=== PATIENT | male | born 1975 | race Caucasian/White ===

== ENCOUNTER → 2018-11-11 | Outpatient (CLI) | payer BC | END | disposition home or self-care (01) | LOC: LABWHC1 07:58 | PROVIDERS: ATTEND Internal Medicine | DX: I10 Essential (primary) hypertension (principal); E78.1 Pure hyperglyceridemia | CPT/HCPCS: 36415; 80061 ==

== ENCOUNTER 2019-04-05 12:06 | Day surgery (SDC) | payer BC ==
[2019-04-03 10:01] VITALS: BMI 50.1
[~2019-04-05 12:06] MED LIST: LACTATED RINGERS 1,000 ML IV SCH
[2019-04-05] MEDS ORDERED: LIDOCAINE 1% 20 ML VIAL (10MG/ML) FOR IV START INTRADERMA ONE (13:00)
[2019-04-05 13:01] VITALS: RESP 18; TEMP 97.9
[2019-04-05] MEDS ORDERED: PROPOFOL 10 MG/ML 20 ML VIAL IV ONE (13:17)
[2019-04-05] MEDS ORDERED: LIDOCAINE 1% INJ 10MG/ML (20 ML MDV) ONE (13:17)
--- NOTE | 2019-04-05 13:20 | P.GSHP ---
History of Present Illness H&P Date: 04/05/19 Chief Complaint: GI bleed This a 44-year-old male who presents today for colonoscopy. He's had issues with GI bleed. Past Medical History Past Medical History: Hypertension, Skin Disorder, Sleep Apnea/CPAP/BIPAP Additional Past Medical History / Comment(s): loose stools often, psoriasis, History of Any Multi-Drug Resistant Organisms: None Reported Past Surgical History: Bariatric Surgery Additional Past Surgical History / Comment(s): gastric sleeve, lasik eye surgery Past Anesthesia/Blood Transfusion Reactions: No Reported Reaction Smoking Status: Never smoker - Past Family History Mother Family Medical History: Cancer Additional Family Medical History / Comment(s): pancreatic cancer Medications and Allergies Home Medications Medication Instructions Recorded Confirmed Type Docusate [Colace] 100 mg PO TID 04/03/19 04/03/19 History Ibuprofen [Motrin] 600 mg PO Q8HR PRN 04/03/19 04/03/19 History Losartan/Hydrochlorothiazide 1 each PO DAILY 04/03/19 04/03/19 History [Losartan-Hctz 100-25 mg Tab] amLODIPine BESYLATE [Norvasc] 10 mg PO DAILY 04/03/19 04/03/19 History Allergies Allergy/AdvReac Type Severity Reaction Status Date / Time Penicillins Allergy Rash/Hives Verified 04/05/19 12:48 Surgical - Exam Vital Signs Temp Pulse Resp BP Pulse Ox 97.9 F 60 18 119/72 95 04/05/19 12:58 04/05/19 12:58 04/05/19 12:58 04/05/19 12:58 04/05/19 12:58 - General well developed, well nourished, no distress - Eyes PERRL - ENT normal pinna - Neck no masses - Respiratory normal expansion - Cardiovascular Rhythm: regular - Abdomen Abdomen: soft, non tender Assessment and Plan Assessment: GI bleed. We'll perform colonoscopy.
--- NOTE | 2019-04-05 13:30 | P.OP ---
Date of Procedure: 04/05/19 Preoperative Diagnosis: GI bleed Postoperative Diagnosis: External hemorrhoids Procedure(s) Performed: Colonoscopy Anesthesia: MAC Surgeon: Humberto Cordon Pathology: none sent Condition: stable Disposition: PACU Description of Procedure: PROCEDURE: The patient was placed on the endoscopy table in the lateral position. Digital rectal examination was performed which revealed a thrombosed hemorrhoid which had evidence of perforation. As no active bleeding.. The clot had passed from the hemorrhoid.. The prostate was symmetrical without nodules. Flexible colonoscope was then placed in the patient's anus and passed throughout the entire colon. The ileocecal valve was visualized. The cecum, ascending, transverse, descending and sigmoid colon were normal. The rectum was normal as well. There were no masses, polyps or diverticula noted in the entire colon. SUMMARY OF FINDINGS: Most external hemorrhoid
[2019-04-05 13:50] VITALS: BP 121/79; PULSE 56
== END 2019-04-05 14:21 | disposition home or self-care (01) ==
LOC: ORWHC2ENDO 12:06
PROVIDERS: ATTEND Surgery
DX: K64.4 Residual hemorrhoidal skin tags (principal); I10 Essential (primary) hypertension; G47.33 Obstructive sleep apnea (adult) (pediatric); Z88.0 Allergy status to penicillin; Z99.89 Dependence on other enabling machines and devices; Z98.84 Bariatric surgery status; Z79.899 Other long term (current) drug therapy
CPT/HCPCS: 45378; J2001; J2704

== ENCOUNTER → 2020-12-27 | Outpatient (CLI) | payer BC ==
--- NOTE | 2020-12-27 18:33 | ECHOF ---
Referral Reason:I10 essential HTN MEASUREMENTS -------- HEIGHT: 182.9 cm WEIGHT: 158.8 kg BP: RVIDd: 5.5 cm (< 3.3) IVSd: 1.6 cm (0.6 - 1.1) LVIDd: 4.7 cm (3.9 - 5.3) LVPWd: 1.9 cm (0.6 - 1.1) IVSs: 2.3 cm LVIDs: 3.0 cm LVPWs: 2.2 cm LAESV Index (A-L): 36.37 ml/m Ao Diam: 3.6 cm (2.0 - 3.7) AV Cusp: 2.6 cm (1.5 - 2.6) LA Diam: 4.4 cm (2.7 - 3.8) MV EXCURSION: 27.027 mm (> 18.000) MV EF SLOPE: 99 mm/s (70 - 150) EPSS: 0.4 cm MV E Aleksander: 0.91 m/s MV DecT: 217 ms MV A Aleksander: 0.47 m/s MV E/A Ratio: 1.93 RAP: 5.00 mmHg RVSP: 39.10 mmHg FINDINGS -------- Sinus rhythm. This was a technically adequate study. The left ventricular size is normal. There is moderate concentric left ventricular hypertrophy. O verall left ventricular systolic function is normal with, an EF between 55 - 60 %. The diastolic fi lling pattern is normal for the age of the patient 9.66. The right ventricle is moderate to severely enlarged. LA is moderately dilated 34-39 ml/m2 The right atrium is mildly enlarged. Mobile interatrial septum. There is no evidence of aortic regurgitation. There is no evidence of aortic stenosis. Tsxg-sh-fgnthkng mitral regurgitation is present. Uqkx-rk-makmdpeb tricuspid regurgitation present. There is mild pulmonary hypertension. The right ventricular systolic pressure, as measured by Doppler, is 39.10mmHg. Trace/mild (physiologic) pulmonic regurgitation. The aortic root size is normal. IVC Not well visulized. There is no pericardial effusion. CONCLUSIONS -------- 1. The left ventricular size is normal. 2. There is moderate concentric left ventricular hypertrophy. 3. Overall left ventricular systolic function is normal with, an EF between 55 - 60 %. 4. The diastolic filling pattern is normal for the age of the patient 9.66 5. The right ventricle is moderate to severely enlarged. 6. LA is moderately dilated 34-39 ml/m2 7. The right atrium is mildly enlarged. 8. Mobile interatrial septum. 9. Izbi-fx-asmuvtay mitral regurgitation is present. 10. Jwmh-sm-cfuxeeyz tricuspid regurgitation present. 11. There is mild pulmonary hypertension. 12. The right ventricular systolic pressure, as measured by Doppler, is 39.10mmHg. 13. Trace/mild (physiologic) pulmonic regurgitation. WELDING MACHINE SETTER: Marychuy Torres RDCS
== END | disposition home or self-care (01) ==
LOC: RADECHMAIN 08:23
PROVIDERS: ATTEND Family Medicine
DX: I08.8 Other rheumatic multiple valve diseases (principal); I27.20 Pulmonary hypertension, unspecified
CPT/HCPCS: 93306

== ENCOUNTER 2021-01-24 10:10 | Day surgery (SDC) | payer BC ==
[2021-01-17 17:50] VITALS: BMI 50.1
[2021-01-24] MEDS ORDERED: SODIUM CHLORIDE 0.9% 500 ML 500 ML IV ONE (11:00)
[2021-01-24] MEDS ORDERED: fentaNYL (PF) 50 MCG/ML 2 ML AMP ONE ×3 (11:27)
[2021-01-24] MEDS: BENZOCAINE SPRAY 1 CAN TOPICAL ONE ×2 (11:37→11:41)
[2021-01-24] MEDS ORDERED: fentaNYL (PF) 50 MCG/ML 2 ML AMP IVP ONE (11:42)
[2021-01-24] MEDS ORDERED: MIDAZOLAM 2 MG/2 ML VIAL IVP ONE ×2 (11:42→11:45)
--- NOTE | 2021-01-24 12:28 | ECHOT ---
TRANSESOPHAGEAL ECHOCARDIOGRAM DATE OF SERVICE: January 24, 2021. PERFORMING PHYSICIAN: Teddy Roque MD. PROCEDURE PERFORMED: Transesophageal echocardiogram. INDICATION: This is a 46-year-old gentleman who was seen recently in the office for shortness of breath and he underwent transthoracic echocardiogram which revealed right-sided enlargement with mobile interatrial septum and because I was concerned about fenestrated atrial septal defect, I asked the patient to have a transesophageal echocardiogram. COMPLICATION: None. LEVEL OF SEDATION: Moderate with a sedation length of 12 minutes. PROCEDURE DESCRIPTION: After obtaining an informed consent, the patient was brought to the transesophageal echocardiogram room. A pulse oximetry and heart rate monitors were attached the patient. Subsequently, the patient was turned into left lateral position. The probe was advanced through the bite guard to the mid esophageal where 2D echocardiogram images as well as color Doppler images and pulse and continuous-wave Doppler images were obtained from various angles. The procedure was completed without any complication. FINDINGS: The left ventricular dimension and systolic function appeared to be within normal limits. The ejection fraction appeared to be in the range of 50% to 55%. The right ventricle appeared to be mildly dilated. The left atrium and right atrium are dilated as well. The interatrial septum appeared to be extremely aneurysmal with evidence of bidirectional shunt was identified on color-flow Doppler as well as contrast study. The aortic valve is trileaflet valve without stenosis with mild regurgitation. The mitral valve was mildly thickened with moderate MR. There was mild tricuspid regurgitation seen. No evidence of pericardial effusion identified. CONCLUSION: 1. Fenestrated interatrial septum with bidirectional shunt. 2. The interatrial septum also is extremely aneurysmal. There was evidence of valve seen as well. 3. Normal left ventricular dimension and systolic function. 4. Mildly dilated right ventricle with normal function. 5. Moderate biatrial enlargement. 6. Trileaflet aortic valve without stenosis with mild insufficiency. 7. Mildly thickened mitral valve leaflets with moderate mitral regurgitation. 8. No evidence of pericardial effusion. POSTPROCEDURE MANAGEMENT: The patient needs to undergo transcutaneous closure of the fenestrated interatrial septum. MMODL / IJN: [id number] /
[2021-01-24 16:17] VITALS: RESP 18
[2021-01-24 16:19] VITALS: BP 133/73; PULSE 56
== END 2021-01-24 13:05 | disposition home or self-care (01) ==
LOC: CATHCVL 10:10
PROVIDERS: ATTEND Internal Medicine Interventional Cardiology
DX: Q21.1 Atrial septal defect (principal); I34.0 Nonrheumatic mitral (valve) insufficiency; E66.9 Obesity, unspecified; Z68.43 Body mass index [BMI] 50.0-59.9, adult; G47.30 Sleep apnea, unspecified; I10 Essential (primary) hypertension; Z79.899 Other long term (current) drug therapy; Z88.0 Allergy status to penicillin
CPT/HCPCS: 93312; 93320; 93325; J2250; J3010

== ENCOUNTER → 2021-02-12 | Outpatient (CLI) | payer BC ==
[2021-02-12 07:34] LABS: HCT 45.3 % (39.0-53.0); HGB 15.7 gm/dL (13.0-17.5); MCH 32.7 pg (25.0-35.0); MCHC 34.6 g/dL (31.0-37.0); MCV 94.6 fL (80.0-100.0); Mean Platelet Volume 8.2; Platelet Count 200 k/uL (150-450); RBC 4.79 m/uL (4.30-5.90); RDW 12.1 % (11.5-15.5); WBC 6.1 k/uL (3.8-10.6)
[2021-02-12 07:52] LABS: African American GFR (CKD) >90 (>60 ml/min/1.73 sqM); Anion Gap 7 mmol/L; Blood Urea Nitrogen 12 mg/dL (9-20); Carbon Dioxide 32 mmol/L (22-30); Chloride 101 mmol/L (98-107); Non-African American GFR(CKD) >90 (>60 ml/min/1.73 sqM); Sodium 140 mmol/L (137-145)
== END | disposition home or self-care (01) ==
LOC: LABPAT 07:00
PROVIDERS: ATTEND Internal Medicine Interventional Cardiology
DX: Z01.812 Encounter for preprocedural laboratory examination (principal); Q21.1 Atrial septal defect
CPT/HCPCS: 36415; 80051; 82565; 84520; 85027

== ENCOUNTER 2021-02-21 09:43 | Day surgery (SDC) | payer BC ==
[2021-02-19 08:41] VITALS: BMI 50.1
[~2021-02-21 09:43] MED LIST changes: +CLINDAMYCIN 300 MG in DEXTROSE 5% IN WATER 50 ML IVPB ONE; -LACTATED RINGERS 1,000 ML IV SCH; +SODIUM CHLORIDE 0.9% 1,000 ML in EMPTY BAG 1 BAG IV ONE
[2021-02-21] MEDS ORDERED: SODIUM CHLORIDE 0.9% 1,000 ML IV ONE (09:51)
[2021-02-21] MEDS ORDERED: ASPIRIN 325 MG TAB PO ONE (11:02)
[2021-02-21] MEDS ORDERED: MIDAZOLAM 2 MG/2 ML VIAL IV ONE (11:03)
[2021-02-21] MEDS: fentaNYL (PF) 50 MCG/ML 2 ML AMP IVP ONE ×2 (11:24→11:56)
[2021-02-21] MEDS ORDERED: MIDAZOLAM 2 MG/2 ML VIAL IVP ONE (11:28)
[2021-02-21] MEDS ORDERED: HEPARIN SODIUM 1,000 UN/ML (10ML VL) IVP ONE (11:39)
[2021-02-21] MEDS ORDERED: IOPAMIDOL-370 50ML BTL INJ ONE (12:13)
[2021-02-21] MEDS ORDERED: CLOPIDOGREL 75 MG TAB PO ONE (12:13)
[2021-02-21] MEDS ORDERED: SODIUM CHLORIDE 0.9% 1,000 ML IV SCH (12:15)
--- NOTE | 2021-02-21 12:21 | P.PCN ---
Date of Procedure: 02/21/21 Operative Findings: PERCUTANEOUS CLOSURE OF PATENT FORAMEN OVALE (PFO) AND ATRIAL SEPTAL DEFECT (ASD) PERFORMING PHYSICIAN: Teddy Roque MD, [facility] PROCEDURE PERFORMED: 1. Successful percutaneous closure of fenestrated atrial septal defect (ASD) using 35 mm Amplatzer PFO Occluder with an excellent results and without any residual shunt. 2. Intracardiac echocardiogram imaging. 3. Right atrial angiogram. INDICATION: This is a very pleasant 46-year-old gentleman who was seen recently in the office for right heart enlargement. He underwent transesophageal echocardiogram and that revealed fenestrated intra-atrial septum which was confirmed by intracardiac echocardiogram today. He was provided today to undergo percutaneous closure of the fenestrated interatrial septum. APPROACH: Right common femoral vein COMPLICATION: None. LEVEL OF SEDATION: Moderate with sedation length of 63 minutes. PROCEDURE DESCRIPTION: After obtaining informed consent, the patient was brought to the cardiac laboratory animal care veterinarian. The right common femoral vein was cannulated x2 using micropuncture technique under ultrasound guidance, the micropuncture wire passed easily, then I placed two 8-Andorran sheath in the right groin. Subsequently I cannulated the Right common femoral vein with the same technique and I placed an 8-Andorran sheath there as well. At that point, anticoagulation was initiated using heparin and the patient was given a bolus of 10,000 units of heparin IV with continuous ACT monitoring throughout the procedure. After that, the intracardiac echocardiogram probe was advanced through one of the venous sheath all the way to the right atrium where we did interrogate the interatrial septum and identified the patent foramen ovale which was measured about 35 mm. Also atrial septal defect was identified. Subsequently, I did cross the patent foramen ovale using 0.035 J-wire with the backup support of multipurpose catheter. The wire was advanced all the way to the left upper pulmonary vein and subsequently the catheter was advanced over the wire to the left upper pulmonary vein. The 0.035 J-wire was pulled out and then I advanced a samina wire. Subsequently, the multipurpose catheter was withdrawn out and the wire was left in the left upper pulmonary vein. After that, I did prep the Amplatzer PFO occluder under saline. The device was loaded into the bulk tank car unloader, which was attached to the sheath. Subsequently, I did exchange my 8-Andorran sheath into the Shuttle sheath over a 0.035 samina wire. The sheath was advanced all the way under fluoroscopy guidance to the left atrium. Subsequently, the dilator of the sheath was withdrawn out along with the wire. After that, I did load the Amplatzer occluder under continuous saline flush to the sheath. The device was advanced all the way through the sheath were I did where I did deploy initially the left atrial occluder and then I pulled back the sheath and the left atrial occluder all the way to the interatrial septum and then I deployed the right atrial occluder after that. Subsequently and after interrogation using intracardiac echocardiogram noticed that the device is too small and we had to replace the 25 mm into 35mm using the same steps described earlier. 35mm device was deployed with initially deploying the left atrial occluder and the right atrium with her. After interrogation using intracardiac echocardiogram there was no residual shunt and were satisfied with the results. Finally that he the device was released. By the end I did right atrial angiogram. Subsequently I did exchanged the long sheath into short 8-Andorran sheath. The procedure was completed without any complication. POSTPROCEDURE MANAGEMENT: 1. Dual anti-platelet therapy. 2. An echo in 24 hours, in 1 week, in 4 weeks, as well as in 6 months. 5. Follow up
--- NOTE | 2021-02-21 14:23 | IR ---
EXAMINATION TYPE: IR cva device check w fluoro DATE OF EXAM: 02/21/2021 COMPARISON: NONE HISTORY: Fluoroscopy time. Fluoroscopy was provided to the referring clinician.
[2021-02-21] MEDS ORDERED: ACETAMINOPHEN TAB 500 MG TAB PO PRN (17:57)
[2021-02-22 07:53] VITALS: BP 141/87; PULSE 71; RESP 16; TEMP 98
--- NOTE | 2021-02-22 07:53 | XR ---
EXAMINATION TYPE: XR chest 2V DATE OF EXAM: 02/22/2021 COMPARISON: None INDICATION: ASD PFO placement TECHNIQUE: Frontal and lateral views of the chest are obtained. FINDINGS: The heart size is normal. The pulmonary vasculature is normal. The lungs are clear. Metallic type foreign body overlies the cardiac base. IMPRESSION: 1. No acute pulmonary process.
[2021-02-22] MEDS ORDERED: amLODIPine 10 MG TAB PO SCH (09:00)
[2021-02-22] MEDS ORDERED: FUROSEMIDE 20 MG TAB PO SCH (09:00)
[2021-02-22] MEDS ORDERED: LOSARTAN 50 MG TAB PO SCH (09:00)
[2021-02-22] MEDS ORDERED: hydroCHLOROthiazide 25 MG TAB PO SCH (09:00)
[2021-02-22] MEDS ORDERED: CLOPIDOGREL 75 MG TAB PO SCH (09:00)
[2021-02-22] MEDS ORDERED: ASPIRIN 325 MG TAB PO SCH (09:00)
--- NOTE | 2021-02-22 13:12 | DS ---
DISCHARGE SUMMARY ADMISSION DATE: 02/21/2021. DISCHARGE DATE: February 22, 2021. BRIEF HISTORY: This is a 46-year-old gentleman who underwent yesterday successful percutaneous closure of fenestrated interatrial septum using 35 mm device and device with an excellent angiographic results and without any complication from right groin approach. The patient was seen this morning. The right groin is soft and nontender. The chest x- ray was reviewed and seems to be unremarkable. The echocardiogram will be reviewed before discharge. The patient is going to be discharged home on dual anti-platelet therapy and I will follow up with the patient in a week in the office. MMODL / IJN: [id number] /
--- NOTE | 2021-02-22 14:53 | ECHOF ---
Referral Reason:Post ASD/PFO Insertion MEASUREMENTS -------- HEIGHT: 182.9 cm WEIGHT: 166.9 kg BP: RVIDd: 3.8 cm (< 3.3) IVSd: 1.2 cm (0.6 - 1.1) LVIDd: 4.8 cm (3.9 - 5.3) LVPWd: 1.3 cm (0.6 - 1.1) IVSs: 1.6 cm LVIDs: 3.9 cm LVPWs: 1.8 cm Ao Diam: 4.1 cm (2.0 - 3.7) AV Cusp: 2.8 cm (1.5 - 2.6) MV EXCURSION: 20.304 mm (> 18.000) MV EF SLOPE: 89 mm/s (70 - 150) EPSS: 0.2 cm MV E Aleksander: 0.83 m/s MV DecT: 221 ms MV A Aleksander: 0.77 m/s MV E/A Ratio: 1.08 RAP: 5.00 mmHg RVSP: 21.84 mmHg FINDINGS -------- Sinus rhythm. This was a technically good study. LV size, wall thickness and systolic function are normal, with an EF greater than 55%. The left clary tricular size is normal. The right ventricle is normal in size. Normal LA size by volume 22+/-6 ml/m2. The right atrial size is normal. Pt had PFO/ASD closure possible crossing. There is mild aortic valve sclerosis. There is no evidence of aortic regurgitation. Mild mitral annular calcification present. Mild mitral regurgitation is present. Mild tricuspid regurgitation present. Right ventricular systolic pressure is normal at < 35 mmHg. There is no pulmonic regurgitation present. The aortic root size is normal. There is no pericardial effusion. CONCLUSIONS -------- 1. LV size, wall thickness and systolic function are normal, with an EF greater than 55%. 2. The left ventricular size is normal. 3. The right ventricle is normal in size. 4. Normal LA size by volume 22+/-6 ml/m2. 5. The right atrial size is normal. 6. Pt had PFO/ASD closure possible crossing. 7. There is mild aortic valve sclerosis. 8. Mild mitral annular calcification present. 9. Mild mitral regurgitation is present. 10. Mild tricuspid regurgitation present. 11. The aortic root size is normal. 12. There is no pericardial effusion. TEACHER'S ASSISTANT: Anaid Guerra RDCS
== END 2021-02-22 15:38 | disposition home or self-care (01) ==
LOC: CATHCVL 09:43 → 3SCARD 14:17 → CATHCVL 02-22 15:38
PROVIDERS: ATTEND Internal Medicine Interventional Cardiology
DX: Q21.1 Atrial septal defect (principal); I10 Essential (primary) hypertension
CPT/HCPCS: 93306; 93580; 93662; 86900; 86901; 86850; 71046; C1769 ×6; C1894; C1817 ×2; C1759; J2250; J3010; J1644 ×2; Q9967

== ENCOUNTER → 2023-02-17 | Outpatient (CLI) | payer BC ==
[2023-02-17 11:55] LABS: Basophils # (A) 0.05 X 10*3/uL (0.00-0.10); Eosinophils % (A) 1.9 %; HCT 42.7 % (39.6-50.0); HGB 14.6 d/dL (13.0-17.0); Lymphocytes # (A) 1.15 X 10*3/uL (0.90-5.00); Lymphocytes % (A) 22.4 %; MCH 32.2 pg (27.0-32.0); MCHC 34.2 d/dL (32.0-37.0); MCV 94.3 FL (80.0-97.0); Mean Platelet Volume 10.9 FL (9.5-12.2); Monocytes # (A) 0.39 X 10*3/uL (0.20-1.00); Monocytes % (A) 7.6 %; NRBC Per 100 WBC 0 X 10*3/uL (0.00-0.01); Neutrophils # (A) 3.44 X 10*3/uL (1.80-7.70); Neutrophils % (A) 66.9 %; Platelet Count 178 X 10*3/uL (140-440); RBC 4.53 X 10*6/uL (4.40-5.60); RDW 11.6 % (11.5-14.5); WBC 5.14 X 10*3/uL (4.50-10.00)
[2023-02-17 12:25] LABS: ALT 40 U/L (10-49); AST 30 U/L (14-35); Albumin 4.7 d/dL (3.8-4.9); Albumin/Globulin Ratio 1.81 Ratio (1.60-3.17); Alkaline Phosphatase 89 U/L (41-126); BUN/Creat Ratio 13.73 Ratio (12.00-20.00); Blood Urea Nitrogen 15.1 mg/dL (9.0-27.0); Calcium 9.8 mg/dL (8.7-10.3); Carbon Dioxide 27.8 mmol/L (21.6-31.8); Chloride 99 mmol/L (96-109); Chol/HDL Ratio 3.81 Ratio; Globulin 2.6 d/dL (1.6-3.3); Glucose 91 mg/dL (70-110); LDL Cholesterol,Calculated 74.3 mg/dL (0.0-131.0); Potassium 3.6 mmol/L (3.5-5.5); Sodium 138 mmol/L (135-145); Total Bilirubin 0.9 mg/dL (0.3-1.2); Total Protein 7.3 d/dL (6.2-8.2)
== END | disposition home or self-care (01) ==
LOC: LABWHC1 07:07
PROVIDERS: ATTEND Family Medicine
DX: Z00.00 Encounter for general adult medical examination without abnormal findings (principal); Z12.5 Encounter for screening for malignant neoplasm of prostate
CPT/HCPCS: 36415; 80053; 80061; 83036; 84153; 84443; 85025

== ENCOUNTER → 2023-09-18 | Outpatient (CLI) | payer BC ==
[2023-09-18 13:21] LABS: Basophils # (A) 0.05 X 10*3/uL (0.00-0.10); Eosinophils # (A) 0.15 X 10*3/uL (0.04-0.35); Eosinophils % (A) 3.1 %; HCT 41.5 % (39.6-50.0); HGB 14.6 g/dL (13.0-17.0); Lymphocytes # (A) 1.22 X 10*3/uL (0.90-5.00); MCH 32.7 pg (27.0-32.0); MCHC 35.2 g/dL (32.0-37.0); Mean Platelet Volume 10.5 FL (9.5-12.2); Monocytes # (A) 0.38 X 10*3/uL (0.20-1.00); Monocytes % (A) 7.8 %; NRBC Per 100 WBC 0 X 10*3/uL (0.00-0.01); Neutrophils # (A) 3.07 X 10*3/uL (1.80-7.70); Neutrophils % (A) 62.9 %; Platelet Count 192 X 10*3/uL (140-440); RBC 4.46 X 10*6/uL (4.40-5.60); RDW 11.9 % (11.5-14.5); WBC 4.88 X 10*3/uL (4.50-10.00)
[2023-09-18 13:26] LABS: NT-Pro-B-Type Natriuretic Pept <36 pg/mL (0-125)
[2023-09-18 14:15] LABS: ALT 28 U/L (10-49); AST 24 U/L (14-35); Albumin 4.4 g/dL (3.8-4.9); Albumin/Globulin Ratio 1.69 Ratio (1.60-3.17); Alkaline Phosphatase 95 U/L (41-126); Blood Urea Nitrogen 10.5 mg/dL (9.0-27.0); Calcium 9.3 mg/dL (8.7-10.3); Carbon Dioxide 26.7 mmol/L (21.6-31.8); Chloride 102 mmol/L (96-109); Chol/HDL Ratio 3.49 Ratio; Globulin 2.6 g/dL (1.6-3.3); Glucose 93 mg/dL (70-110); LDL Cholesterol,Calculated 68.1 mg/dL (0.0-131.0); Potassium 4.1 mmol/L (3.5-5.5); Sodium 141 mmol/L (135-145); T4, Free (Free Thyroxine) 1.15 ng/dL (0.80-1.80); Total Bilirubin 0.7 mg/dL (0.3-1.2)
== END | disposition home or self-care (01) ==
LOC: LABWHC1 08:49
PROVIDERS: ATTEND Family Medicine
DX: I10 Essential (primary) hypertension (principal); Q21.0 Ventricular septal defect
CPT/HCPCS: 36415; 80053; 80061; 83525; 83880; 84439; 84443; 85025

== ENCOUNTER → 2024-01-14 | Outpatient (CLI) | payer BC ==
[2024-01-14 09:23] LABS: Basophils # (A) 0.1 k/uL (0-0.2); Basophils % (A) 1 %; Eosinophils # (A) 0.2 k/uL (0-0.7); Eosinophils % (A) 4 %; HCT 47.6 % (39.0-53.0); HGB 16.2 gm/dL (13.0-17.5); Lymphocytes # (A) 1.5 k/uL (1.0-4.8); Lymphocytes % (A) 25 %; MCH 32.6 pg (25.0-35.0); MCV 96.1 fL (80.0-100.0); Mean Platelet Volume 9.1; Monocytes # (A) 0.3 k/uL (0-1.0); Monocytes % (A) 5 %; Neutrophils # (A) 3.9 k/uL (1.3-7.7); Neutrophils % (A) 63 %; Platelet Count 192 k/uL (150-450); RBC 4.96 m/uL (4.30-5.90); RDW 12.1 % (11.5-15.5); WBC 6.2 k/uL (3.8-10.6)
[2024-01-14 17:52] LABS: ALT 29 U/L (10-49); AST 26 U/L (14-35); Albumin 4.6 g/dL (3.8-4.9); Albumin/Globulin Ratio 1.64 Ratio (1.60-3.17); Alkaline Phosphatase 103 U/L (41-126); Blood Urea Nitrogen 11.8 mg/dL (9.0-27.0); Calcium 9.6 mg/dL (8.7-10.3); Carbon Dioxide 25.8 mmol/L (21.6-31.8); Chloride 100 mmol/L (96-109); Chol/HDL Ratio 4.21 Ratio; Globulin 2.8 g/dL (1.6-3.3); Glucose 99 mg/dL (70-110); LDL Cholesterol,Calculated 91.9 mg/dL (0.0-131.0); Potassium 3.8 mmol/L (3.5-5.5); Prostate Specific Antigen 0.45 ng/mL (0.000-2.500); Sodium 140 mmol/L (135-145); Total Bilirubin 0.7 mg/dL (0.3-1.2); Total Protein 7.4 g/dL (6.2-8.2)
== END | disposition home or self-care (01) ==
LOC: LABWHC1 07:41
PROVIDERS: ATTEND Family Medicine
DX: Z00.00 Encounter for general adult medical examination without abnormal findings (principal); Z12.5 Encounter for screening for malignant neoplasm of prostate
CPT/HCPCS: 36415; 80053; 80061; 83036; 84153; 84443; 85025